=== PATIENT | female | born 1940 | race Caucasian/White ===

== ENCOUNTER 2017-05-23 09:56 | Observation (INO) | payer OTHER ==
[~2017-05-23] VITALS: Ht 177.8 cm; Wt 78.1 kg
[~2017-05-23 09:56] MED LIST: AMLODIPINE BESYL5 MG PO; ASCORBIC ACID500 M3 PO; CALTRATE 600 +1 EAC1 PO; CIPROFLOXACIN500 M1 PO; CRANBERRY500 MG PO; Cipro PO; DOCUSATE SODIU100 MG PO; LISINOPRIL10 MG PO; LISINOPRIL20 MG PO; MIRALAX255 GM PO; Norvasc PO; PRILOSEC10 MG PO; ULTRAM50 MG PO; VITAMIN B-12250 MCG PO; Zestril,Prinivil PO
[2017-05-23 10:37] LABS: EOSINOPHIL (%) 0.8 % (0-5); EOSINOPHIL COUNT 0.1 K/uL (0-0.3); HEMATOCRIT 42.9 % (36.0-46.0); IMMATURE GRANULOCYTE (%) 0.5 % (0.0-0.7); INSTRUMENT ABS NEUTROPHIL CT 4.5 K/uL; LYMPHOCYTE COUNT 1.3 K/uL (1.0-2.8); MCH 29.3 PG (29.0-34.0); MCHC 32.6 G/DL (30.0-36.0); MCV 89.7 FL (83-99); MEAN PLAT.VOLUME 11.3 uM^3 (9.5-12.4); MONOCYTE (%) 9.6 % (3-12); MONOCYTE COUNT 0.6 K/uL (0-0.8); NEUTROPHIL (%) 68.7 % (45-76); NEUTROPHIL COUNT 4.5 K/uL (1.8-6.4); PLATELET COUNT 174 K/uL (156-360); RBC DIS.WIDTH-CV 14.2 % (11.8-14.6); RBC DIS.WIDTH-SD 46.5 % (39-53); RED BLOOD COUNT 4.78 M/uL (3.80-5.20); WHITE BLOOD COUNT 6.5 K/uL (4.1-10.2)
[2017-05-23 10:47] LABS: CHLORIDE 109 mEq/L (99-109); POTASSIUM 4.6 mEq/L (3.7-5.4); SODIUM 143 mEq/L (136-147)
[2017-05-23 10:49] LABS: GLUCOSE 104 mg/dL (70-99)
[2017-05-23 10:50] LABS: ANION GAP 10 MEQ/L (2-14)
[2017-05-23 10:51] LABS: TOTAL BILIRUBIN 0.5 mg/dL (0.0-1.0)
[2017-05-23 10:52] LABS: ALKALINE PHOSPHATASE 73 IU/L (3-129)
[2017-05-23 10:53] LABS: GFR ESTIMATE (CALCULATED) > 59 mL/min/
[2017-05-23 10:54] LABS: UREA NITROGEN (BUN) 17 mg/dL (9-23)
[2017-05-23 10:58] LABS: TROP-I INTERPRETATION NEGATIVE; TROPONIN-I < 0.01 ng/mL (0.0-0.30)
[2017-05-23] MEDS ORDERED: DOCUSATE SODIU100 MG PO (11:35)
[2017-05-23] MEDS ORDERED: IBUPROFEN800 MG PO (11:36)
[2017-05-23] MEDS ORDERED: HIPREX1 GM PO (12:04)
[2017-05-23 14:02] VITALS: BP 145/90
[2017-05-23 14:30] VITALS: BP 140/72
[2017-05-23 16:00] VITALS: BP 137/69
[2017-05-23 17:42] LABS: TROP-I INTERPRETATION NEGATIVE; TROPONIN-I 0.06 ng/mL (0.0-0.30)
[2017-05-23 20:20] VITALS: BP 168/87
[2017-05-23 23:01] LABS: ADD MIUA? YES; BILIRUBIN NEGATIVE; BLOOD NEGATIVE; COLOR YELLOW ((YELLOW)); GLUCOSE (STRIP) NEGATIVE; KETONES NEGATIVE; LEUKOCYTES TRACE; NITRITE POSITIVE; PROTEIN (STRIP) NEGATIVE; SPECIFIC GRAVITY 1.004 (1.000-1.030); UROBILINOGEN 0.2 MG/DL (0.2-1.0)
[2017-05-23 23:04] LABS: BACTERIA 1+ /HPF; EPITHELIAL CELLS RARE /HPF; MUCUS NONE SEEN /LPF; RED BLOOD CELLS 0-5 /HPF (0-5); UCUL ADDED? YES
[2017-05-24] VITALS (7 sets, daily range): BP systolic 106–190; BP diastolic 75–96
[2017-05-24 00:14] LABS: TROP-I INTERPRETATION NEGATIVE; TROPONIN-I 0.05 ng/mL (0.0-0.30)
[2017-05-24] MEDS ORDERED: FLORINEF ACETA0.1 MG PO (12:25)
== END 2017-05-24 17:46 | disposition home or self-care (01) ==
LOC: EME 09:56 → 5SOUTH 11:52 → EDOF 11:52 → ENRESERV 12:00 → CANRESERV 12:00 → ENRESERV 12:29 → 5SOUTH 13:45
PROVIDERS: Emergency Medicine; Internal Medicine
DX: I95.1 Orthostatic hypotension (principal); I10 Essential (primary) hypertension; F45.8 Other somatoform disorders; Z85.3 Personal history of malignant neoplasm of breast; R00.2 Palpitations; I34.0 Nonrheumatic mitral (valve) insufficiency; I27.20 Pulmonary hypertension, unspecified; Z82.49 Family history of ischemic heart disease and other diseases of the circulatory system; K21.9 Gastro-esophageal reflux disease without esophagitis; F17.200 Nicotine dependence, unspecified, uncomplicated; Z79.82 Long term (current) use of aspirin; Z90.10 Acquired absence of unspecified breast and nipple; Z90.710 Acquired absence of both cervix and uterus; Z80.3 Family history of malignant neoplasm of breast
CPT/HCPCS: 70450; 71010; 80053; 81003; 83880; 84484; 85025; 87077; 87086; 87186; 93005; 93306; 99281; 99285; G0378; J1650; J7030